=== PATIENT | male | born 1990 | race Caucasian/White ===

== ENCOUNTER 2018-01-25 15:21 | Emergency (ER) | payer SELFPAY ==
--- NOTE | 2018-01-25 15:54 | EDM.PDOCBH ---
ED HPI GENERAL MEDICAL PROBLEM - General Chief Complaint: Drug or Alcohol Abuse Stated Complaint: EVAL, ALCOHOL DETOX Time Seen by Provider: 01/25/18 15:30 Source of Information: Reports: Patient, RN History Limitations: Reports: Intoxication - History of Present Illness INITIAL COMMENTS - FREE TEXT/NARRATIVE: 27 yo male presents accompanied by a sister requesting medical clearance for [facility]. He drinks hard liquor daily. He has never been through detox. He has recenty had vomiting, abdominal pain and some hematemesis. He is not on any medications. No hx of DT's or seizures. Was drinking still today and is currently intoxicated. Onset: Unknown/Unsure Duration: Chronic (long standing drinker) Location: Reports: Generalized Quality: Reports: Ache (abdominal pain) Severity: Mild Improves with: Reports: None Worsens with: Reports: Other (drinking more ETOH) Context: Reports: Other (chronic drinker) Associated Symptoms: Reports: Nausea/Vomiting. Denies: Fever/Chills, Shortness of Breath Treatments CHEMISTRY TUTOR: Reports: Other (see below) (none) - Related Data Allergies Allergy/AdvReac Type Severity Reaction Status Date / Time Sulfa (Sulfonamide Allergy Cannot Verified 01/25/18 15:35 Antibiotics) Remember Home Meds: Home Meds Pantoprazole Sodium [Protonix] 40 mg PO DAILY #30 tablet. 01/25/18 [Rx] Past Medical History - Past Health History Medical/Surgical History: Denies Medical/Surgical History Psychiatric History: Reports: Addiction - Infectious Disease History Infectious Disease History: Reports: Chicken Pox Social & Family History - Tobacco Use Smoking Status *Q: Never Smoker - Caffeine Use Caffeine Use: Reports: Energy Drinks - Recreational Drug Use Recreational Drug Use: No ED ROS GENERAL - Review of Systems Review Of Systems: See Below Constitutional: Reports: No Symptoms HEENT: Reports: No Symptoms Respiratory: Reports: No Symptoms Cardiovascular: Reports: No Symptoms GI/Abdominal: Reports: Abdominal Pain, Hematemesis, Nausea, Vomiting. Denies: Black Stool, Constipation, Diarrhea : Reports: No Symptoms Musculoskeletal: Reports: No Symptoms Skin: Reports: No Symptoms Neurological: Reports: No Symptoms Psychiatric: Reports: Other (intoxication) ED EXAM, BEHAVIORAL HEALTH - Physical Exam Exam: See Below Exam Limited By: Intoxication General Appearance: Alert, WD/WN, No Apparent Distress Eye Exam: Right Eye: Vision Changes, Bilateral Eye: Conjunctival Injection Ears: Normal External Exam, Normal Canal, Hearing Grossly Normal, Normal TMs Nose: Normal Inspection, Normal Mucosa, No Blood Throat/Mouth: Normal Inspection, Normal Lips, Normal Oropharynx, Normal Voice, No Airway Compromise Head: Atraumatic, Normocephalic Neck: Normal Inspection Respiratory/Chest: No Respiratory Distress, Lungs Clear, Normal Breath Sounds, No Accessory Muscle Use Cardiovascular: Regular Rate, Rhythm, No Edema GI/Abdominal: Normal Bowel Sounds, Soft, No Distention, Tender (RUQ and epigastrium). No: Distended Back Exam: Normal Inspection. No: CVA Tenderness (R), CVA Tenderness (L) Extremities: Normal Inspection, Normal Range of Motion, Non-Tender, No Pedal Edema Neurological: Alert, Normal Mood/Affect, CN II-XII Intact, Normal Cognition, No Motor/Sensory Deficits, Oriented x 3 Psychiatric: Alert, Normal Affect, Normal Cognition, Normal Mood, Oriented, Other (intoxicated) Skin Exam: Warm, Dry, Intact, Normal color, No rash COURSE, BEHAVIORAL HEALTH COMP - Course Vital Signs: Last Vital Signs Temp 36.0 C 01/25/18 15:45 Pulse 96 01/25/18 15:45 Resp 18 01/25/18 15:45 BP 147/84 H 01/25/18 15:45 Pulse Ox 96 01/25/18 15:45 Orthostatic Blood Pressure [ 139/81 Standing] Orthostatic Blood Pressure [ 134/84 Sitting] Orthostatic Blood Pressure [ 128/80 Supine] Orders, Labs, Meds: Active Orders 24 hr Category Date Time Status Orthostatic Vital Signs [RC] ASDIRECTED Care 01/25/18 15:47 Active DRUG SCREEN, URINE [URCHEM] Stat Lab 01/25/18 15:56 Ordered UA W/MICROSCOPIC [URIN] Stat Lab 01/25/18 15:56 Ordered Pantoprazole [ProTONIX] Med 01/25/18 16:00 Active 40 mg PO DAILY Medication Orders Pantoprazole Sodium (Protonix) 40 mg PO DAILY [facility] Last Admin: 01/25/18 16:00 Dose: 40 mg Laboratory Tests 01/25/18 01/25/18 01/25/18 Range/Units 15:26 15:26 15:26 WBC 6.2 (4.5-11.0) K/uL RBC 5.56 (4.30-5.90) M/uL Hgb 17.2 H (12.0-15.0) g/dL Hct 48.5 (40.0-54.0) % MCV 87 (80-98) fL MCH 31 (27-31) pg MCHC 36 (32-36) % Plt Count 185 (150-400) K/uL Sodium 141 (140-148) mmol/L Potassium 3.6 (3.6-5.2) mmol/L Chloride 104 (100-108) mmol/L Carbon Dioxide 29 (21-32) mmol/L Anion Gap 8.2 (5.0-14.0) mmol/L BUN 11 (7-18) mg/dL Creatinine 1.0 (0.8-1.3) mg/dL Est Cr Clr Drug Dosing 120.27 mL/min Estimated GFR (MDRD) > 60 (>60) Glucose 97 (74-106) mg/dL Calcium 8.4 L (8.5-10.1) mg/dL Urine Color Urine Appearance Urine pH (4.5-8.0) Ur Specific Home (1.008-1.030) Urine Protein (NEGATIVE) mg/dL Urine Glucose (UA) (NEGATIVE) mg/dL Urine Ketones (NEGATIVE) mg/dL Urine Occult Blood (NEGATIVE) Urine Nitrite (NEGAITVE) Urine Bilirubin (NEGATIVE) Urine Urobilinogen (NORMAL) mg/dL Ur Leukocyte Esterase (NEGATIVE) Urine RBC (0-5) Urine WBC (0-5) Ur Epithelial Cells Amorphous Sediment Urine Bacteria Urine Mucus Urine Opiates Screen (NEGATIVE) Ur Oxycodone Screen (NEGATIVE) Urine Methadone Screen (NEGATIVE) Ur Propoxyphene Screen (NEGATIVE) Ur Barbiturates Screen (NEGATIVE) Ur Tricyclics Screen (NEGATIVE) Ur Phencyclidine Scrn (NEGATIVE) Ur Amphetamine Screen (NEGATIVE) U Methamphetamines Scrn (NEGATIVE) Urine MDMA Screen (NEGATIVE) U Benzodiazepines Scrn (NEGATIVE) U Cocaine Metab Screen (NEGATIVE) U Marijuana (THC) Screen (NEGATIVE) Ethyl Alcohol 342 mg/dL 01/25/18 01/25/18 Range/Units 15:56 15:56 WBC (4.5-11.0) K/uL RBC (4.30-5.90) M/uL Hgb (12.0-15.0) g/dL Hct (40.0-54.0) % MCV (80-98) fL MCH (27-31) pg MCHC (32-36) % Plt Count (150-400) K/uL Sodium (140-148) mmol/L Potassium (3.6-5.2) mmol/L Chloride (100-108) mmol/L Carbon Dioxide (21-32) mmol/L Anion Gap (5.0-14.0) mmol/L BUN (7-18) mg/dL Creatinine (0.8-1.3) mg/dL Est Cr Clr Drug Dosing mL/min Estimated GFR (MDRD) (>60) Glucose (74-106) mg/dL Calcium (8.5-10.1) mg/dL Urine Color Yellow Urine Appearance Clear Urine pH 7.0 (4.5-8.0) Ur Specific Home 1.005 L (1.008-1.030) Urine Protein Negative (NEGATIVE) mg/dL Urine Glucose (UA) Negative (NEGATIVE) mg/dL Urine Ketones Negative (NEGATIVE) mg/dL Urine Occult Blood Negative (NEGATIVE) Urine Nitrite Negative (NEGAITVE) Urine Bilirubin Negative (NEGATIVE) Urine Urobilinogen 1 (NORMAL) mg/dL Ur Leukocyte Esterase Negative (NEGATIVE) Urine RBC Not seen (0-5) Urine WBC Not seen (0-5) Ur Epithelial Cells Not seen Amorphous Sediment Few Urine Bacteria Not seen Urine Mucus Not seen Urine Opiates Screen Negative (NEGATIVE) Ur Oxycodone Screen Negative (NEGATIVE) Urine Methadone Screen Negative (NEGATIVE) Ur Propoxyphene Screen Negative (NEGATIVE) Ur Barbiturates Screen Negative (NEGATIVE) Ur Tricyclics Screen Negative (NEGATIVE) Ur Phencyclidine Scrn Negative (NEGATIVE) Ur Amphetamine Screen Negative (NEGATIVE) U Methamphetamines Scrn Negative (NEGATIVE) Urine MDMA Screen Negative (NEGATIVE) U Benzodiazepines Scrn Negative (NEGATIVE) U Cocaine Metab Screen Negative (NEGATIVE) U Marijuana (THC) Screen Negative (NEGATIVE) Ethyl Alcohol mg/dL Medications Generic Name Dose Route Start Last Admin Trade Name Freq PRN Reason Stop Dose Admin Pantoprazole Sodium 40 mg 01/25/18 16:00 01/25/18 16:00 Protonix PO 40 mg DAILY [facility] Administration Discontinued Medications Generic Name Dose Route Start Last Admin Trade Name Freq PRN Reason Stop Dose Admin Al Hydroxide/Mg Hydroxide 30 ml 01/25/18 15:57 01/25/18 16:00 Mag-Al Plus PO 01/25/18 15:58 30 ml ONETIME ONE Administration Departure - Departure Time of Disposition: 16:25 Disposition: DC/Tfer to Other 70 Condition: Fair Clinical Impression: Alcohol abuse Acute alcohol intoxication Qualifiers: Complication of substance-induced condition: with unspecified complication Qualified Code(s): F10.929 - Alcohol use, unspecified with intoxication, unspecified Alcoholic gastritis with bleeding Qualifiers: Chronicity: acute Qualified Code(s): K29.21 - Alcoholic gastritis with bleeding - Discharge Information *PRESCRIPTION DRUG MONITORING PROGRAM REVIEWED*: Not Applicable *COPY OF PRESCRIPTION DRUG MONITORING REPORT IN PATIENT PHUONG: Not Applicable Prescriptions: Pantoprazole Sodium [Protonix] 40 mg PO DAILY #30 tablet.dr Referrals: PCP,None [Primary Care Provider] - Forms: ED Department Discharge Additional Instructions: Take Protonix 40 mg every morning. Avoid ibuprofen, aspirin, or Aleve or alcohol until your stomach is fully healed. Go to [facility] for alcohol detox. When you get done with your alcohol treatment then see you family doctor for follow up on your gastritis. - My Orders Last 24 Hours: My Active Orders 01/25/18 15:47 Orthostatic Vital Signs [RC] ASDIRECTED 01/25/18 15:56 DRUG SCREEN, URINE [URCHEM] Stat UA W/MICROSCOPIC [URIN] Stat 01/25/18 16:00 Pantoprazole [ProTONIX] 40 mg PO DAILY - Assessment/Plan Last 24 Hours: My Active Orders 01/25/18 15:47 Orthostatic Vital Signs [RC] ASDIRECTED 01/25/18 15:56 DRUG SCREEN, URINE [URCHEM] Stat UA W/MICROSCOPIC [URIN] Stat 01/25/18 16:00 Pantoprazole [ProTONIX] 40 mg PO DAILY
[2018-01-25] MEDS ORDERED: Aluminum Hydroxide/Magnesium Hydroxide/Simethicone Susp 30 ML Cup PO ONE (15:57)
[2018-01-25] MEDS ORDERED: Pantoprazole 40 MG Tab.CR PO SCH (16:00)
== END 2018-01-25 16:31 | disposition other institution (70) ==
LOC: JP.ED 15:21
DX: K29.21 Alcoholic gastritis with bleeding (principal); F10.129 Alcohol abuse with intoxication, unspecified; Y90.8 Blood alcohol level of 240 mg/100 ml or more; Z88.2 Allergy status to sulfonamides; Z79.899 Other long term (current) drug therapy
CPT/HCPCS: 36415; 80048; 80305; 81001; 85027; 99285; A9270; G0480